=== PATIENT | male | born 1995 | race Native Hawaiian/Other Pacific Islander ===

== ENCOUNTER 2018-01-12 13:54 | Emergency (ER) | payer OTHER ==
[~2018-01-12] VITALS: Ht 180.3 cm; Wt 154.2 kg
[2018-01-12 14:10] VITALS: TEMP 97.5
[2018-01-12 15:20] LABS: PLATELET COUNT 327 K/uL (142-355)
[2018-01-12 15:30] LABS: POTASSIUM 3.8 mmol/L (3.6-5.2); SODIUM 139 mmol/L (136-145)
[2018-01-12 20:55] VITALS: BP 162/80
== END 2018-01-12 20:55 | disposition home or self-care (01) ==
LOC: ED 13:54
DX: G24.9 Dystonia, unspecified (principal)
CPT/HCPCS: 80053; 80307; 80320; 80329; 81000; 83735; 84100; 85027; 93005; 96372; 99285; J3486

== ENCOUNTER 2018-07-17 13:32 | Emergency (ER) | payer OTHER ==
[~2018-07-17] VITALS: Ht 182.9 cm; Wt 158.8 kg
[2018-07-17 14:54] LABS: PLATELET COUNT 324 K/uL (142-355)
[2018-07-17 15:07] LABS: POTASSIUM 3.8 mmol/L (3.6-5.2)
[2018-07-19 20:09] VITALS: BP 145/77; TEMP 98
== END 2018-07-19 20:10 | disposition other institution (70) ==
LOC: ED 13:32
DX: F12.10 Cannabis abuse, uncomplicated (principal); F32.89 Other specified depressive episodes; Z04.6 Encounter for general psychiatric examination, requested by authority
CPT/HCPCS: 36415; 80053; 80307; 80320; 80329; 81000; 85027; 93005; 99285; J2270

== ENCOUNTER 2020-06-19 13:56 | Emergency (ER) | payer OTHER ==
[~2020-06-19] VITALS: Ht 182.9 cm; Wt 170.1 kg
[2020-06-19 14:48] LABS: PLATELET COUNT 278 K/uL (142-355)
[2020-06-19 14:55] LABS: POTASSIUM 4.1 mmol/L (3.6-5.2)
[2020-06-20 05:58] VITALS: BP 138/81; TEMP 97.8
== END 2020-06-20 06:54 | disposition other institution (70) ==
LOC: ED 13:56
DX: R45.850 Homicidal ideations (principal); Z03.818 Encounter for observation for suspected exposure to other biological agents ruled out
CPT/HCPCS: 80053; 80307; 80320; 80329; 81000; 85027; 87635; 93005; 99285; U0003

== ENCOUNTER 2021-04-28 19:53 | Emergency (ER) | payer OTHER ==
[~2021-04-28] VITALS: Ht 182.9 cm; Wt 158.8 kg
[2021-04-28 21:06] LABS: PLATELET COUNT 319 K/uL (142-355)
[2021-04-28 21:15] LABS: POTASSIUM 3.6 mmol/L (3.6-5.2)
[2021-05-02 20:50] VITALS: TEMP 98.8
[2021-05-03 10:45] VITALS: BP 124/76
== END 2021-05-03 10:45 | disposition other institution (70) ==
LOC: ED 19:53
PROVIDERS: Emergency Medicine Emergency Medical Services
DX: R45.851 Suicidal ideations (principal); F32.89 Other specified depressive episodes; Z11.52 Encounter for screening for COVID-19
CPT/HCPCS: 36415; 80053; 80307; 80320; 80329; 81000; 85027; 87635; 99285; U0003